=== PATIENT | male | born 1995 | race Two or more races ===

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

== ENCOUNTER 2018-09-27 09:20 | Emergency (ER) | payer SELFPAY ==
[2018-09-27 09:58] VITALS: BP 146/96
--- NOTE | 2018-09-27 10:54 | ED Physician Documentation ---
History of Present Illness - Stated complaint Stated Complaint: RT EYE SWELLING/REDNESS - Chief complaint Chief Complaint: Heent - History obtained from History obtained from: Patient - History of Present Illness Timing: Today - Additonal information Additional information: 22-year-old male awoke this morning looking his I saw a small glob of weight in the corner of the eye and he looked at this thinking he might see some movement and it became concerned that he may have a parasite he looked this up on [employer] and became even more concerned and is come out to the emergency department for evaluation. He is not having any other specific symptoms and he has not been out of the country recently. Review of Systems Constitutional: denies: Fever, Chills, Myalgias Eyes: reports: Discharge. denies: Loss of vision, Decreased vision, Photophobia, Irritation Ears: denies: Ear pain Nose: denies: Rhinorrhea / runny nose, Congestion Throat: denies: Sore throat Cardiac: denies: Chest pain / pressure, Palpitations Respiratory: denies: Dyspnea, Cough PD PAST MEDICAL HISTORY - Past Surgical History Past Surgical History: No - Present Medications Home Medications: Ambulatory Orders Medication Instructions Recorded Confirmed Amoxicillin 1,000 mg PO BID #20 capsule 10/24/16 Clarithromycin 500 mg PO BID #10 tablet 10/24/16 Lidocaine Viscous 2% [Xylocaine 5 ml PO Q4H PRN #1 bottle 10/24/16 Viscous 2%] Ondansetron HCl [Zofran] 4 mg PO Q6H PRN #20 tablet 10/24/16 Rabeprazole Sodium [Aciphex] 20 mg PO BID #20 tablet. 10/24/16 Tinidazole 500 mg PO BID #10 tablet 10/24/16 - Allergies Allergies/Adverse Reactions: Allergies Allergy/AdvReac Type Severity Reaction Status Date / Time No Known Drug Allergies Allergy Verified 01/02/13 13:09 - Social History Does the pt smoke?: No Smoking Status: Never smoker Does the pt drink ETOH?: No Does the pt have substance abuse?: No - Immunizations Immunizations are current?: Yes PD ED PE NORMAL - Vitals Vital signs reviewed: Yes (hypertensive mild ) - General General: Alert and oriented X 3, No acute distress, Well developed/nourished - HEENT HEENT: Atraumatic, PERRL, EOMI, Ears normal, Moist mucous membranes, Pharynx benign, Dentition benign - Neck Neck: Supple, no meningeal sign, No bony TTP - Respiratory Respiratory: No respiratory distress - Derm Derm: Normal color, Warm and dry, No rash - Extremities Extremities: No deformity, No edema - Neuro Neuro: Alert and oriented X 3, supervisor dry 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, No motor deficit, No sensory deficit, Normal speech Eye Opening: Spontaneous Motor: Obeys Commands Verbal: Oriented GCS Score: 15 - Psych Psych: Normal mood, Normal affect Results - Vitals Vitals: Vital Signs - 24 hr 09/27/18 09:55 Temperature 36.7 C Heart Rate 80 Respiratory 14 Rate Blood Pressure 146/96 H O2 Saturation 100 Oxygen O2 Source Room air PD MEDICAL DECISION MAKING - ED course Complexity details: considered differential, d/w patient ED course: 22-year-old male with what I suspect is drainage from the right maxillary sinus ending up in the corner of the eye has normal physical exam findings here today in the emergency department. I did discuss with the patient the phenomena of delusional parasitosis related to methamphetamine use and he denies any use of methamphetamine. He mostly has been calm concerned after reviewing images on Google. Departure - Departure Disposition: Home, Self Care Clinical Impression: Well adult Condition: Stable Follow-Up: [facility] [Provider Group] Comments: .Today it appears on exam there is no abnormality to your eye. I do not suspect a parasite. I do suspect that there was likely some obstruction to the drainage of the right eye into the sinus and this appears to be resolved now.
== END 2018-09-27 11:11 | disposition home or self-care (01) ==
LOC: ED 09:20
DX: Z71.1 Person with feared health complaint in whom no diagnosis is made (principal)
CPT/HCPCS: 99281; 99282

== ENCOUNTER 2020-08-01 23:13 | Emergency (ER) | payer SELFPAY ==
[2020-08-01 23:41] LABS: RAPID STREP SCREEN Negative (Negative)
--- OUTSIDE RECORDS SUMMARY | 2020-08-02 00:15 | EXTERNAL MEDICAL SUMMARY RPT | Continuity of Care Document ---
:1995 Demographics Phone Unavailable Preferred Language Unknown Marital Status Unknown Mandaen Affiliation Unknown Race Unknown Ethnic Group Unknown Author Organization [facility] Address [address] [place] [address] Phone Social History date description facility [phone]
--- NOTE | 2020-08-02 00:26 | ED Physician Documentation ---
PD HPI HEENT - Stated complaint Stated Complaint: SORE THROAT - Chief complaint Chief Complaint: Heent - History obtained from History obtained from: Patient - History of Present Illness Timing - onset: How many days ago (4-5) Timing - duration: Days Timing - details: Gradual onset, Constant Pain level max: 5 Pain level now: 7 Location: Throat Improves: Nothing Worsens: Swalllowing Associated symptoms: No: Fever, Trismus, Unable to swallow, Cough Similar symptoms before: Has not had sx before Recently seen: Not recently seen - Additional information Additional information: c/o 5 days of gradual onset but steadily progressive sore throat, predominantly right-sided. odynophagia but able to swallow. Denies fever Review of Systems Constitutional: denies: Fever, Chills, Sweats Throat: reports: Sore throat Respiratory: denies: Dyspnea, Cough PD PAST MEDICAL HISTORY - Past Medical History Past Medical History: No Cardiovascular: None Respiratory: None Neuro: None Endocrine/Autoimmune: None GI: None : None HEENT: None Psych: None Musculoskeletal: None Derm: None - Past Surgical History Past Surgical History: No - Present Medications Home Medications: Ambulatory Orders Medication Instructions Recorded Confirmed Amox/Clav 875/125 [Augmentin 1 tablet PO Q12H 14 Days #28 tablet 08/02/20 875/125 Tab] HYDROcod/ACETAM 5/325 [[place] 5/325] 1 - 2 tablet PO Q6H PRN #14 tablet 08/02/20 Methylprednisolone [Medrol] 4 mg PO DAILY #1 08/02/20 - Allergies Allergies/Adverse Reactions: Allergies Allergy/AdvReac Type Severity Reaction Status Date / Time No Known Drug Allergies Allergy Verified 08/01/20 23:30 - Social History Does the pt smoke?: No Smoking Status: Never smoker Does the pt drink ETOH?: No Does the pt have substance abuse?: No - Immunizations Immunizations are current?: Yes - POLST Patient has POLST: No PD ED PE NORMAL - Vitals Vital signs reviewed: Yes - General General: Alert and oriented X 3, No acute distress, Well developed/nourished, Other (muffled voice ) PD ED PE EXPANDED - HEENT HEENT: Other (significant right posterior oropharyngeal erythema and swelling. airway is patent. no exudate or discharge) Results - Vitals Vitals: Oxygen O2 Source Room air - Labs Labs: Microbiology 08/01/20 23:25 Group A Strep Throat Culture - Preliminary Throat CULTURE IN PROGRESS. RESULTS TO FOLLOW. Laboratory Tests 08/01/20 08/02/20 08/02/20 23:25 01:00 01:00 WBC 13.0 H RBC 5.18 Hgb 16.2 Hct 48.0 MCV 92.7 MCH 31.3 H MCHC 33.8 RDW 12.0 Plt Count 305 MPV 10.2 Neut # (Auto) Not Reportable Lymph # (Auto) Not Reportable [place] # (Auto) Not Reportable Eos # (Auto) Not Reportable Baso # (Auto) Not Reportable Absolute Nucleated RBC Not Reportable Total Counted 100 Band Neuts % (Manual) 7 Reactive Lymphs % (Man) 9 Abnorm Lymph % (Manual) 0 Nucleated RBC % Not Reportable Neutrophils # (Manual) 8.1 H Lymphocytes # (Manual) 3.1 Monocytes # (Manual) 1.7 H Eosinophils # (Manual) 0.1 Basophils # (Manual) 0.0 Differential Comment MANUAL DIFFERENTIAL Platelet Estimate NORMAL (130-450,000) RBC Morph Micro Appear NORMAL APPEARANCE Sodium Potassium Chloride Carbon Dioxide Anion Gap BUN Creatinine Estimated GFR (MDRD) Glucose Calcium Total Bilirubin AST ALT Alkaline Phosphatase Total Protein Albumin Globulin Albumin/Globulin Ratio Lipase Infectious [place] Assay NEGATIVE Group A Strep Rapid Negative 08/02/20 01:00 WBC RBC Hgb Hct MCV MCH MCHC RDW Plt Count MPV Neut # (Auto) Lymph # (Auto) [place] # (Auto) Eos # (Auto) Baso # (Auto) Absolute Nucleated RBC Total Counted Band Neuts % (Manual) Reactive Lymphs % (Man) Abnorm Lymph % (Manual) Nucleated RBC % Neutrophils # (Manual) Lymphocytes # (Manual) Monocytes # (Manual) Eosinophils # (Manual) Basophils # (Manual) Differential Comment Platelet Estimate RBC Morph Micro Appear Sodium 134 L Potassium 3.7 Chloride 96 L Carbon Dioxide 25 Anion Gap 13.0 BUN 13 Creatinine 0.8 Estimated GFR (MDRD) 121 Glucose 106 H Calcium 10.2 Total Bilirubin 0.8 AST 28 ALT 44 Alkaline Phosphatase 74 Total Protein 9.6 H Albumin 4.7 Globulin 4.9 H Albumin/Globulin Ratio 1.0 Lipase 25 Infectious [place] Assay Group A Strep Rapid - Rads (name of study) CT neck soft tissue Radiology: Prelim report reviewed, See rad report PD MEDICAL DECISION MAKING - ED course Complexity details: reviewed results, re-evaluated patient, considered differential, d/w patient ED course: patient reports symptomatic relief with IV toradol and decadron. Although his voice is muffled and significant right-sided swelling, he is not in any obvious distress during ED stay, both before medications as well as multiple reevaluations. CT neck is c/w right peritonsillar abscess. Dr. Dev Robertson is consulted and he came to the ED and evaluated patient; plan is d/c home with outpatient follow up 08/03 in office for reevaluation and likely drainage of the abscess. Patient is comfortable with this plan and understands he is to return to ED at any time he feels his symptoms are worsening. He is given Unsasyn in ED, and provided prescriptions for augmentin, vicodin and medrol dose pack. Departure - Departure Disposition: , Self Care Clinical Impression: Peritonsillar abscess Condition: Good Instructions: ED Peritonsillar Abscess Follow-Up: Dev Robertson, [place] [Provider Admit Priv/Credential] - (Follow up tomorrow (08/03/20) as instructed. Do not eat or drink anything for at least 6 hours prior to follow up. Call today to ensure appointment.) Prescriptions: Amox/Clav 875/125 [Augmentin 875/125 Tab] 1 tablet PO Q12H 14 Days #28 tablet Methylprednisolone [Medrol] 4 mg PO DAILY #1 HYDROcod/ACETAM 5/325 [[place] 5/325] 1 - 2 tablet PO Q6H PRN #14 tablet PRN Reason: Pain Discharge Date/Time: 08/02/20 05:12
[2020-08-02] MEDS ORDERED: DEXAMETHASONE 10 MG/ML VIAL IVP STA (00:42)
[2020-08-02] MEDS ORDERED: KETOROLAC 30 MG/ML VIAL IVP STA (00:42)
[2020-08-02] MEDS ORDERED: IOPAMIDOL-300 100 ML VIAL ONE (00:45)
[2020-08-02 01:07] LABS: BASOPHILS % (AUTO) 0.5 %; EOSINOPHILS % (AUTO) 1.4 %; HGB - HEMOGLOBIN 16.2 g/dL (14.0-18.0); MEAN CORPUSCULAR HEMOGLOBIN 31.3 pg (27.0-31.0); MEAN CORPUSCULAR HGB CONC 33.8 g/dL (32.0-36.0); MEAN CORPUSCULAR VOLUME 92.7 fL (80.0-94.0); MEAN PLATELET VOLUME 10.2 fL (7.4-11.4); NEUTROPHILS % (AUTO) 66.6 %; PLT - PLATELET COUNT 305 10^3/uL (130-450); RED BLOOD COUNT 5.18 10^6/uL (4.70-6.10)
[2020-08-02 01:09] LABS: ABNORMAL LYMPHS % (MANUAL) 0 %
[2020-08-02 01:18] LABS: INFECTIOUS MONONUCLEOSIS NEGATIVE (Negative)
[2020-08-02 01:20] LABS: ALBUMIN 4.7 g/dL (3.2-5.5); BILIRUBIN,TOTAL 0.8 mg/dL (0.2-1.0); CALCIUM 10.2 mg/dL (8.5-10.3); CREATININE 0.8 mg/dL (0.6-1.2); POTASSIUM 3.7 mmol/L (3.5-5.0); TOTAL PROTEIN 9.6 g/dL (6.7-8.2)
[2020-08-02 01:33] LABS: BAND NEUTROPHILS % (MANUAL) 7 %; EOSINOPHILS # (MANUAL) 0.1 10^3/uL (0-0.7); LYMPHOCYTES # (MANUAL) 3.1 10^3/uL (1.5-3.5); LYMPHOCYTES % (MANUAL) 15 %; MONOCYTES # (MANUAL) 1.7 10^3/uL (0.0-1.0); NEUTROPHILS # (MANUAL) 8.1 10^3/uL (1.5-6.6); REACTIVE LYMPHS % (MANUAL) 9 %
[2020-08-02 01:34] LABS: DIFFERENTIAL COMMENT MANUAL DIFFERENTIAL; PLATELET ESTIMATE, MANUAL NORMAL (130-450,000) (NORMAL); RBC MORPHOLOGY (MULTIPLE) NORMAL APPEARANCE (NORMAL)
[2020-08-02] MEDS ORDERED: IOPAMIDOL-300 100 ML VIAL IVP ONE (01:58)
--- NOTE | 2020-08-02 03:53 | CONSULTATION NOTE ---
Referring Provider Name of Referring Provider:: Faraz Adame Consult Date: 08/02/20 Chief Complaint - Chief Complaint Chief Complaint: Throat swelling History of Present Illness - History of Present Illness HPI Comment/Other: 24 yo M w/ five days of progressive swelling of the throat. Endorses dysphagia, dysphonia, pain in the R tonsillar area, globus. Denies tooth pain, trismus, drainage, dyspnea, fever. History - Past Medical History Cardiovascular: reports: None Respiratory: reports: None Neuro: reports: None Endocrine/Autoimmune: reports: None GI: reports: None : reports: None HEENT: reports: None Psych: reports: None Musculoskeletal: reports: None Derm: reports: None MRSA Hx?: No - POLST Patient has POLST: No Meds/Allgy - Home Medications Home Medications: Ambulatory Orders Medication Instructions Recorded Confirmed No Known Home Medications 08/01/20 08/01/20 - Allergies Allergies/Adverse Reactions: Allergies Allergy/AdvReac Type Severity Reaction Status Date / Time No Known Drug Allergies Allergy Verified 08/01/20 23:30 Review of Systems - All Other Systems All Other Systems: reports: Reviewed and negative Exam - Vital Signs Reviewed Vital Signs: Yes Vital Signs: Vital Signs x48h Temp Pulse Resp BP Pulse Ox 08/02/20 03:15 15 08/02/20 01:59 94 15 128/74 98 08/01/20 23:28 36.2 C L 103 H 16 165/103 H 99 - Physical Exam General Appearance: positive: No acute distress, Alert Eyes Bilateral: positive: PERRL, EOMI ENT: positive: Other (FRANCIE wnl. Occlusion stable and repeatable. FOM s,nt,ne. Uvula deviated mildly to L. Draping of the R soft palate. Erythema of the R soft palate. No drainage.) Neck: positive: Lymphadenopathy (R), Lymphadenopathy (L) Respiratory: positive: Chest non-tender, No respiratory distress Cardiovascular: positive: Regular rate & rhythm Peripheral Pulses: positive: 2+ Abdomen: positive: Non-tender, No distention Skin: positive: No rash, Warm, Dry Extremities: positive: Non-tender, Full ROM Neurologic/Psychiatric: positive: Oriented x3, CN's nml (2-12) Conclusion/Plan - Diagnosis Diagnosis: Right peritonsillar abscess - Plan Plan: OK for discharge to home with outpatient follow up. - Augmentin 875 BID x 14 days - medrol dose pack - Unasyn 3g IV x 1 dose - follow up on at: [facility] [address] [place] [address], [place] - Present to clinic NPO x 6 hrs on Thank you for including me is [facility]. Please call with any questions. Dev Robertson DDS [phone] - Lab Results Lab results reviewed: Yes Fish Bones: 08/02/20 01:00 08/02/20 01:00 - Diagnostic Imaging Results Diagnostic Imaging Results: positive: Other (29mm abscess of the R peritonsillar region. There is no retropharyngeal thickening, fluid, or air. The abscess is superior in the pharynx and does not descend. Moderate mass efect, efacement of the airway, and narrowing superiorly.)
[2020-08-02] MEDS ORDERED: AMPICILLIN/SULBACTAM 3 GM in SODIUM CHLORIDE 0.9% MINIBAG 100 ML IV STA (04:02)
[2020-08-02 05:13] VITALS: BP 141/90
--- NOTE | 2020-08-02 13:02 | CT Report ---
PROCEDURE: SOFT TISSUE NECK W INDICATIONS: sore throat, significant swelling CONTRAST: IV CONTRAST: Isovue 300 ml: 80 PO CONTRAST: *NO PO CONTRAST TECHNIQUE: After the administration of intravenous contrast, 3.0 mm axial sections acquired from the sella to th e aortic arch. Additional oblique axial 3.0 mm sections acquired through the pharynx. 3 mm thick co shree reformats were generated. For radiation dose reduction, the following was used: automated exp osure control, adjustment of mA and/or kV according to patient size. COMPARISON: None. FINDINGS: Image quality: Excellent. Lymph nodes: There is presence of enlarged lymph nodes bilaterally, right greater than left. The larg est is identified on the right level 2A measuring 1.9 cm. Vessels: Visualized vasculature appears pa tent. Neck spaces: There is an ill-defined heterogeneous soft tissue masslike density within the region of the right accounting tonsil measuring approximately 3.2 x 3.0 cm. It is seen on series 3 image 134. T here is mild midline extension and narrowing of the trachea at this level. There is minimal appearanc e of peripheral enhancement, without focal fluid collection. Glands: The parotid and submandibular glands appear normal. The thyroid is normal in size. Miscellaneous: Visualized brain and orbits appear normal. Lung apices appear clear. Superficial so ft tissues appear normal. Bones: No suspicious bony lesions. Visualized sinuses and mastoids appear unremarkable. IMPRESSION: 1. Masslike prominence in the right peritonsillar region with heterogeneous attenuation. Finding can represent infection or inflammation such as phlegmon and/or developing abscess particular given appea maribel of possibly reactive adenopathy. Recommend correlation to patient's symptoms and interval follo w-up after appropriate therapy to document resolution is recommended to exclude presence of underlyin g mass lesion which could be malignancy. The above findings are concordant with preliminary report. Reviewed by: Danna Orozco MD on 08/02/2020 1:00 PM PDT Approved by: Danna Orozco MD on 08/02/2020 1:00 PM PDT Station ID: [id number]
== END 2020-08-02 05:12 | disposition home or self-care (01) ==
LOC: ED 23:13
DX: J36 Peritonsillar abscess (principal)
CPT/HCPCS: 36415; 70491; 80053; 83690; 85025; 86308; 87070; 87430; 96365; 96375; 99283; 99284; Q9967

== ENCOUNTER 2023-10-14 23:13 | Outpatient (CLI) | payer SELFPAY | END 2023-10-14 23:59 | disposition critical access hospital (66) | LOC: EMS 23:13 | DX: Z04.6 Encounter for general psychiatric examination, requested by authority (principal); R45.851 Suicidal ideations | CPT/HCPCS: A0425; A0429 ==

== ENCOUNTER 2023-10-14 23:34 | Emergency (ER) | payer MEDICAID ==
[2023-10-15 00:04] LABS: BILIRUBIN,URINE NEGATIVE (NEGATIVE); CLARITY,URINE c (CLEAR); GLUCOSE, URINE (UA) NEGATIVE (NEGATIVE); KETONES,URINE (UA) NEGATIVE (NEGATIVE); LEUKOCYTE ESTERASE, URINE NEGATIVE (NEGATIVE); NITRITE,URINE NEGATIVE (NEGATIVE); OCCULT BLOOD,URINE NEGATIVE (NEGATIVE); PH,URINE 6.5 PH (5.0-7.5); PROTEIN,URINE 30 mg/dL (NEGATIVE); UROBILINOGEN,URINE 0.2 (NORMAL) E.U./dL (NORMAL)
[2023-10-15 00:08] LABS: BASOPHILS % (AUTO) 0.6 %; EOSINOPHILS % (AUTO) 0.3 %; HGB - HEMOGLOBIN 14.9 g/dL (14.0-18.0); LYMPHOCYTES # (AUTO) 2.2 10^3/uL (1.5-3.5); LYMPHOCYTES % (AUTO) 32.1 %; MEAN CORPUSCULAR HEMOGLOBIN 31.4 pg (27.0-31.0); MEAN CORPUSCULAR HGB CONC 33.1 g/dL (32.0-36.0); MEAN CORPUSCULAR VOLUME 94.7 fL (80.0-94.0); MEAN PLATELET VOLUME 10.3 fL (7.4-11.4); MONOCYTES # (AUTO) 0.8 10^3/uL (0.0-1.0); MONOCYTES % (AUTO) 12.1 %; NEUTROPHILS # (AUTO) 3.6 10^3/uL (1.5-6.6); NEUTROPHILS % (AUTO) 54.5 %; PLT - PLATELET COUNT 245 10^3/uL (130-450); RED BLOOD COUNT 4.75 10^6/uL (4.70-6.10); RED CELL DISTRIBUTION WIDTH 14.2 % (12.0-15.0); WHITE BLOOD COUNT 6.7 x10^3/uL (4.8-10.8)
[2023-10-15 00:12] LABS: BACTERIA,URINE None Seen /HPF (None Seen); MUCUS,URINE Few Strands; RBC,URINE 0-5 /HPF (0-5); SQUAMOUS EPITHELIAL CELL,UR NONE SEEN (<= Few); WBC,URINE 0-3 /HPF (0-3)
[2023-10-15 00:13] LABS: AMPHETAMINE SCREEN,URINE NEGATIVE (NEGATIVE); BARBITURATE SCREEN,UR NEGATIVE (NEGATIVE); BENZODIAZEPINES SCREEN, URINE NEGATIVE (NEGATIVE); BUPRENORPHINE SCREEN, URINE NEGATIVE (NEGATIVE); COCAINE SCREEN URINE NEGATIVE (NEGATIVE); METHADONE SCREEN, URINE NEGATIVE (NEGATIVE); METHAMPHETAMINES SCREEN, URINE NEGATIVE (NEGATIVE); OPIATE SCREEN, URINE NEGATIVE (NEGATIVE); OXYCODONE SCREEN, URINE NEGATIVE (NEGATIVE); THC CANNABINOID SCREEN, URINE NEGATIVE (NEGATIVE); TRICYCLIC ANTIDEPRESSANT,URINE NEGATIVE (NEGATIVE)
[2023-10-15 00:20] LABS: MAGNESIUM 1.9 mg/dL (1.7-2.3)
[2023-10-15 00:27] LABS: ALBUMIN 4.8 g/dL (3.2-5.5); ALBUMIN/GLOBULIN RATIO 1.6 (1.0-2.2); ALKALINE PHOSPHATASE 84 IU/L (42-121); ALT ALANINE AMINOTRANSFERASE 104 IU/L (10-60); AST ASPARTATE AMINOTRANSFERASE 68 IU/L (10-42); BILIRUBIN,TOTAL 0.3 mg/dL (0.2-1.0); BUN - BLOOD UREA NITROGEN 10 mg/dL (6-20); CALCIUM 9.6 mg/dL (8.5-10.3); CARBON DIOXIDE - CO2 22 mmol/L (21-32); CHLORIDE 108 mmol/L (101-111); CK- CREATINE KINASE 913 IU/L (30-223); CREATININE 0.9 mg/dL (0.6-1.3); ETOH - ETHANOL 175.1 mg/dL; GFR - MDRD 103 (>89); GLUCOSE 109 mg/dL (74-104); LIPASE 18 U/L (11-82); POTASSIUM 3.7 mmol/L (3.5-4.5); SODIUM 143 mmol/L (135-145); TOTAL PROTEIN 7.8 g/dL (6.4-8.9)
[2023-10-15 00:31] LABS: ACETAMINOPHEN < 0.1 ug/mL; SALICYLATE < 1.5 mg/dL
--- NOTE | 2023-10-15 01:26 | ED Physician Documentation ---
PD HPI MHE - Stated complaint Stated Complaint: MHE - Chief complaint Chief Complaint: MHE - History obtained from History obtained from: Patient - Additional information Additional information: Patient states he is a 27-year-old male who has been under a lot of stress recently and made suicidal comments to a family member this evening and put a gun that he owns to his head. He states he has been drinking. He states that he has a lot going on and it just seemed to escalate tonight. However he states he no longer feels like he wants to hurt himself and states he is glad he did not hurt himself.He says that he usually has a drink or 2 after work to relax but does not feel that he has an issue with alcohol. Does not use other drugs. Denies a history of depression. Review of Systems Constitutional: denies: Fever Cardiac: denies: Chest pain / pressure Respiratory: denies: Dyspnea GI: denies: Abdominal Pain PD PAST MEDICAL HISTORY - Past Medical History Past Medical History: No Cardiovascular: None Respiratory: None Neuro: None Endocrine/Autoimmune: None GI: None : None HEENT: None Psych: None Musculoskeletal: None Derm: None - Past Surgical History Past Surgical History: No - Present Medications Home Medications: Ambulatory Orders Medication Instructions Recorded Confirmed Amox/Clav 875/125 [Augmentin 1 tablet PO Q12H 14 Days #28 tablet 08/02/20 875/125 Tab] HYDROcod/ACETAM 5/325 [[place] 5/325] 1 - 2 tablet PO Q6H PRN #14 tablet 08/02/20 methylPREDNISolone [Medrol] 4 mg PO DAILY #1 08/02/20 - Allergies Allergies/Adverse Reactions: Allergies Allergy/AdvReac Type Severity Reaction Status Date / Time No Known Drug Allergies Allergy Verified 10/14/23 23:40 - Social History Does the pt smoke?: No Smoking Status: Never smoker Does the pt drink ETOH?: No Does the pt have substance abuse?: No - Immunizations Immunizations are current?: Yes - POLST Patient has POLST: No PD ED PE NORMAL - General General: Alert and oriented X 3, No acute distress, Well developed/nourished - HEENT HEENT: Atraumatic - Neck Neck: Supple, no meningeal sign - Cardiac Cardiac: RRR, Strong equal pulses - Respiratory Respiratory: No respiratory distress, Clear bilaterally - Abdomen Abdomen: Soft, Non tender - Derm Derm: Warm and dry - Neuro Neuro: Alert and oriented X 3, No motor deficit, Normal speech Results - Vitals Vitals: Vital Signs - 24 hr 10/14/23 23:40 Temperature 37.0 C Heart Rate 114 H Respiratory 16 Rate Blood Pressure 150/100 H O2 Saturation 98 Oxygen O2 Source Room air - Labs Labs: Laboratory Tests 10/14/23 10/14/23 10/14/23 23:43 23:56 23:56 WBC 6.7 RBC 4.75 Hgb 14.9 Hct 45.0 MCV 94.7 H MCH 31.4 H MCHC 33.1 RDW 14.2 Plt Count 245 MPV 10.3 Neut # (Auto) 3.6 Lymph # (Auto) 2.2 [place] # (Auto) 0.8 Eos # (Auto) 0.0 Baso # (Auto) 0.0 Absolute Nucleated RBC 0.00 Nucleated RBC % 0.0 Sodium 143 Potassium 3.7 Chloride 108 Carbon Dioxide 22 Anion Gap 13.0 BUN 10 Creatinine 0.9 Estimated GFR (MDRD) 103 Glucose 109 H Calcium 9.6 Magnesium 1.9 Total Bilirubin 0.3 AST 68 H ALT 104 H Alkaline Phosphatase 84 Total Creatine Kinase 913 H Total Protein 7.8 Albumin 4.8 Globulin 3.0 Albumin/Globulin Ratio 1.6 Lipase 18 TSH 1.30 Urine Color DARK YELLOW Urine Clarity c Urine pH 6.5 Ur Specific [place] 1.025 Urine Protein 30 H Urine Glucose (UA) NEGATIVE Urine Ketones NEGATIVE Urine Occult Blood NEGATIVE Urine Nitrite NEGATIVE Urine Bilirubin NEGATIVE Urine Urobilinogen 0.2 (NORMAL) Ur Leukocyte Esterase NEGATIVE Urine RBC 0-5 Urine WBC 0-3 Ur Squamous Epith Cells NONE SEEN Urine Bacteria None Seen Urine Mucus Few Strands Ur Microscopic Review INDICATED Urine Culture Comments NOT INDICATED Salicylates < 1.5 Urine Opiates Screen NEGATIVE Ur Buprenorphine Scrn NEGATIVE Ur Oxycodone Screen NEGATIVE Urine Methadone Screen NEGATIVE Acetaminophen < 0.1 Ur Barbiturates Screen NEGATIVE Ur Tricyclics Screen NEGATIVE Ur Phencyclidine Scrn NEGATIVE Ur Amphetamine Screen NEGATIVE U Methamphetamines Scrn NEGATIVE U Benzodiazepines Scrn NEGATIVE Urine Cocaine Screen NEGATIVE U Cannabinoids Screen NEGATIVE Ur Drug Screen Comment CUTOFF CONC BELOW: Ethyl Alcohol 175.1 10/15/23 05:17 WBC RBC Hgb Hct MCV MCH MCHC RDW Plt Count MPV Neut # (Auto) Lymph # (Auto) [place] # (Auto) Eos # (Auto) Baso # (Auto) Absolute Nucleated RBC Nucleated RBC % Sodium Potassium Chloride Carbon Dioxide Anion Gap BUN Creatinine Estimated GFR (MDRD) Glucose Calcium Magnesium Total Bilirubin AST ALT Alkaline Phosphatase Total Creatine Kinase Total Protein Albumin Globulin Albumin/Globulin Ratio Lipase TSH Urine Color Urine Clarity Urine pH Ur Specific [place] Urine Protein Urine Glucose (UA) Urine Ketones Urine Occult Blood Urine Nitrite Urine Bilirubin Urine Urobilinogen Ur Leukocyte Esterase Urine RBC Urine WBC Ur Squamous Epith Cells Urine Bacteria Urine Mucus Ur Microscopic Review Urine Culture Comments Salicylates Urine Opiates Screen Ur Buprenorphine Scrn Ur Oxycodone Screen Urine Methadone Screen Acetaminophen Ur Barbiturates Screen Ur Tricyclics Screen Ur Phencyclidine Scrn Ur Amphetamine Screen U Methamphetamines Scrn U Benzodiazepines Scrn Urine Cocaine Screen U Cannabinoids Screen Ur Drug Screen Comment Ethyl Alcohol 40.4 PD Medical Decision Making - ED course Complexity details: reviewed results, re-evaluated patient, d/w patient ED course: Patient is a 27-year-old male presenting for evaluation after expressing suicidal thoughts and holding a gun to his head this evening in the setting of alcohol use. Patient reports increased stress recently which escalated this evening. He states he does not feel suicidal any longer and is thankful he did not do something to hurt himself. He is cooperative. Mental health screening labs were ordered and reviewed and without significant findings other than EtOH level of 175.Minimal elevation in AST and ALT. CK is 913. This does not suggest rhabdomyolysis.Patient is tolerating p.o. hydration.Will recheck EtOH And Request telepsychiatry consultation note once EtOH is below 80. Repeat EtOH is 40. Telepsychiatry consultation requested. Patient care turned over at shift change pending telepsychiatry evaluation. Departure - Departure Clinical Impression: Alcohol intoxication Forms: PCP List
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
--- NOTE | 2023-10-15 10:01 | ED Physician Documentation ---
ED Addendum - Addendum Addendum: 10/15/23 09:59 The patient had an interview by psychiatry via telepsychiatry. The rec ommendation was for outpatient treatment and he was felt to be low risk for self-harm and stimulated by the intoxication enhancing the mood. The patient does have guns in the house. Recommendation was for removal of those for the short-term at least. I had social work Flora come down and talk with the patient and his brother who is willing to hold the patient's firearms for the near future. The patient was denying any suicidal ideation here. 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 Social work did set up the patient for short-term repeat counseling and check-in over the next few days. A safety plan was written. The patient seems safe for discharge at this time. He is to avoid alcohol. Follow-up with counseling for stress reduction. Disposition: The patient discharged home in stable condition. Diagnoses: 1. Situational depression 2. Transient suicidal ideation 3. Alcohol intoxication
[2023-10-15 11:02] VITALS: BP 149/94; O2SAT 99
== END 2023-10-15 10:57 | disposition home or self-care (01) ==
LOC: EDUNIT# → ED 23:34
DX: R45.851 Suicidal ideations (principal); F43.21 Adjustment disorder with depressed mood; F10.129 Alcohol abuse with intoxication, unspecified; Y90.6 Blood alcohol level of 120-199 mg/100 ml
CPT/HCPCS: 36415; 80053; 80143; 80179; 80306; 81001; 82077; 82550; 83690; 83735; 84443; 85025; 99283; G0425; Q3014; 81003; 87086